=== PATIENT | female | born 2000 | race African-American/Black ===

== ENCOUNTER 2021-10-13 12:07 | Emergency (ER) | payer OTHER ==
[2021-10-13 12:21] VITALS: BP 115/75; PULSE 110; TEMP 98.4; BMI 32.8
== END 2021-10-13 15:24 | disposition home or self-care (01) ==
LOC: JERFT 12:07
DX: J06.9 Acute upper respiratory infection, unspecified (principal)
CPT/HCPCS: 0241U-QW; 99283-25

== ENCOUNTER 2023-01-20 23:54 | Emergency (ER) | payer OTHER ==
[2023-01-21 00:19] VITALS: BP 123/78; PULSE 78; RESP 20; TEMP 98.6; BMI 32.3
[2023-01-21] MEDS ORDERED: ACETAMINOPHEN 500 MG TABLET (FP) PO ONE (00:40)
[2023-01-21] MEDS ORDERED: ACETAMINOPHEN 500 MG TABLET (FP) ONE (00:54)
[2023-01-21] MEDS ORDERED: LIDOCAINE 5% TOPICAL PATCH TP ONE (00:57)
[2023-01-21] MEDS ORDERED: METHOCARBAMOL 500 MG TABLET PO ONE (00:57)
[2023-01-21] MEDS ORDERED: LIDOCAINE 5% TOPICAL PATCH ONE (01:12)
[2023-01-21] MEDS ORDERED: METHOCARBAMOL 500 MG TABLET ONE (01:12)
[2023-01-21] MEDS ORDERED: LIDOCAINE PATCH REMOVAL MC ONE (13:00)
== END 2023-01-21 03:26 | disposition home or self-care (01) ==
LOC: JER 23:54
DX: R07.81 Pleurodynia (principal); S20.20XA Contusion of thorax, unspecified, initial encounter; W01.0XXA Fall on same level from slipping, tripping and stumbling without subsequent striking against object, initial encounter; Y93.02 Activity, running
CPT/HCPCS: 71045-TC-FY; 71101-TC-RT-FY; 84703; 93005; 93010; 99285-25

== ENCOUNTER 2023-07-09 11:43 | Emergency (ER) | payer OTHER ==
[2023-07-09 11:58] VITALS: BP 110/70; PULSE 79; RESP 18; TEMP 98.2; BMI 33.9
== END 2023-07-09 13:42 | disposition home or self-care (01) ==
LOC: JER 11:43 → JERFT 11:43
DX: R50.9 Fever, unspecified (principal); R53.83 Other fatigue; R09.81 Nasal congestion; R05.9 Cough, unspecified; J10.1 Influenza due to other identified influenza virus with other respiratory manifestations; Z20.822 Contact with and (suspected) exposure to COVID-19
CPT/HCPCS: 0241U-QW; 99283-25

== ENCOUNTER 2023-12-06 09:14 | Emergency (ER) | payer OTHER ==
[2023-12-06 09:24] VITALS: BP 103/65; PULSE 68; RESP 20; TEMP 97.9; BMI 36.4
[2023-12-06 10:26] LABS: BASO % 0.7 % (0-2.0); EOS % 1.2 % (0-4.5); HEMATOCRIT 31.4 % (32.4-45.2); HEMOGLOBIN 10.6 GM/dL (10.7-15.3); LYMPH % 23.3 % (8-40); MCH 28.7 pg (25.7-33.7); MCHC 33.8 g/dl (32.0-36.0); MEAN CELL VOLUME 84.9 fl (80-96); MEAN PLT VOLUME 7.7 fl (7.5-11.1); MONO % 8.2 % (3.8-10.2); NEUT % 66.6 % (42.8-82.8); PLATELET COUNT 298 10^3/uL (134-434); RDW 13.5 % (11.6-15.6); WHITE BLOOD COUNT 7.4 K/mm3 (4.0-10.0)
[2023-12-06 10:45] LABS: INR 1.05 (0.83-1.09); PROTHROMBIN TIME (PATIENT) 11.8 SEC (9.7-13.0)
[2023-12-06 10:48] LABS: ACTIVATED PTT 31.1 SECONDS (25.2-36.5)
[2023-12-06 11:23] LABS: ALBUMIN 3.3 g/dl (3.4-5.0); ALK PHOS 89 U/L (45-117); BILIRUBIN,TOTAL 0.6 mg/dL (0.2-1); BLOOD UREA NITROGEN 15.4 mg/dL (7-18); CALCIUM 8.9 mg/dL (8.5-10.1); CHLORIDE 111 mmol/L (98-107); CO2 25 mmol/L (21-32); CREATININE 0.7 mg/dL (0.55-1.3); GLUCOSE,RANDOM 83 mg/dL (74-106); SGOT/AST 10 U/L (15-37); SGPT/ALT 19 U/L (13-61); SODIUM 142 mmol/L (136-145); TOT PROT 7.1 g/dl (6.4-8.2)
== END 2023-12-06 13:59 | disposition home or self-care (01) ==
LOC: JER 09:14
DX: N93.9 Abnormal uterine and vaginal bleeding, unspecified (principal); R10.30 Lower abdominal pain, unspecified
CPT/HCPCS: 36415; 76830-TC; 80053; 84702; 84703; 85025; 85610; 85730; 86850; 86900; 86901; 99284-25

== ENCOUNTER 2024-02-16 09:49 | Emergency (ER) | payer OTHER ==
[2024-02-16 10:01] VITALS: BP 120/71; PULSE 106; RESP 17; TEMP 98.4; BMI 35.9
[2024-02-16] MEDS ORDERED: DEXAMETHASONE SOD PHOSPHATE 10 MG/1 ML VIAL ONE (10:57)
[2024-02-16] MEDS ORDERED: ACETAMINOPHEN INJECTION 100 ML ONE (10:57)
[2024-02-16] MEDS: ACETAMINOPHEN 1000 MG/100 ML BAG IVPB ONE (11:03)
[2024-02-16] MEDS: DEXAMETHASONE SOD PHOSPHATE 10 MG/1 ML VIAL IVPUSH ONE (11:03)
[2024-02-16] MEDS: SODIUM CHLORIDE 0.9% 500 ML INFUS.BAG IV ONE (11:03)
[2024-02-16 11:11] LABS: BASO % 0.3 % (0-2.0); EOS % 0.6 % (0-4.5); HEMATOCRIT 34.3 % (32.4-45.2); HEMOGLOBIN 11.2 GM/dL (10.7-15.3); LYMPH % 9.8 % (8-40); MCH 26.3 pg (25.7-33.7); MCHC 32.7 g/dl (32.0-36.0); MEAN CELL VOLUME 80.5 fl (80-96); MEAN PLT VOLUME 7.8 fl (7.5-11.1); MONO % 7.5 % (3.8-10.2); NEUT % 81.8 % (42.8-82.8); PLATELET COUNT 363 10^3/uL (134-434); RBC 4.26 M/mm3 (3.60-5.2); RDW 15.2 % (11.6-15.6); WHITE BLOOD COUNT 14.3 K/mm3 (4.0-10.0)
[2024-02-16 11:32] LABS: BLOOD UREA NITROGEN 7.8 mg/dL (7-18); CALCIUM 9.5 mg/dL (8.5-10.1)
[2024-02-16 11:35] LABS: CREATININE 0.7 mg/dL (0.55-1.3)
[2024-02-16 11:36] LABS: THROAT:GRP A STREP NOT DETECTED (NOTDETECTED)
[2024-02-16 13:48] LABS: HIV INTERPRETATION NEGATIVE (NEGATIVE)
== END 2024-02-16 14:29 | disposition home or self-care (01) ==
LOC: JERFT 09:49
PROC: 3E033NZ Introduction of Analgesics, Hypnotics, Sedatives into Peripheral Vein, Percutaneous Approach (ICD-10-PCS; principal; 2024-02-16)
PROC: 3E033GC Introduction of Other Therapeutic Substance into Peripheral Vein, Percutaneous Approach (ICD-10-PCS; 2024-02-16)
DX: J35.03 Chronic tonsillitis and adenoiditis (principal); Z20.822 Contact with and (suspected) exposure to COVID-19
CPT/HCPCS: 0241U-QW; 36415; 70491-TC; 80048; 84703; 85025; 86803; 87389; 87651; 99285-25; J0131; J1100; Q9967

== ENCOUNTER 2024-02-19 13:23 | Emergency (ER) | payer OTHER ==
[2024-02-19 13:48] VITALS: BP 119/84; PULSE 95; RESP 17; TEMP 98.4; BMI 37.0
[2024-02-19] MEDS ORDERED: KETOROLAC TROMETHAMINE 30 MG/1 ML VIAL ONE (14:25)
[2024-02-19] MEDS: KETOROLAC TROMETHAMINE 30 MG/1 ML VIAL IM ONE (14:41)
== END 2024-02-19 14:42 | disposition home or self-care (01) ==
LOC: JERFT 13:23
PROC: 3E0233Z Introduction of Anti-inflammatory into Muscle, Percutaneous Approach (ICD-10-PCS; principal; 2024-02-19)
DX: J03.90 Acute tonsillitis, unspecified (principal)
CPT/HCPCS: 99284-25

== ENCOUNTER 2024-09-05 14:46 | Emergency (ER) | payer OTHER ==
[2024-09-05 15:14] VITALS: BP 121/70; PULSE 65; RESP 18; TEMP 98.3; BMI 36.4
== END 2024-09-05 17:09 | disposition home or self-care (01) ==
LOC: JERFT 14:46
DX: J02.9 Acute pharyngitis, unspecified (principal); R09.81 Nasal congestion; M79.10 Myalgia, unspecified site
CPT/HCPCS: 0241U-QW; 99283-25